=== PATIENT | male | born 1955 | race Caucasian/White ===

== ENCOUNTER 2018-12-29 13:18 | Emergency (ER) | payer BC ==
[2018-12-29 12:39] VITALS: PULSE 76
[2018-12-29] MEDS ORDERED: Sodium Chloride 0.9% 10 ML Syringe FLUSH PRN (13:46)
[2018-12-29] MEDS ORDERED: Iopamidol 612 MG/ML 100 ML Bottle IVPUSH ONE (13:53)
[2018-12-29 14:32] LABS: ANION GAP 13.2; CHLORIDE,CL 104 mmol/L (101-111); SODIUM,NA 138 mmol/L (135-145)
[2018-12-29] MEDS ORDERED: Sodium Chloride 0.9% 1,000 ML IV ONE (15:34)
[2018-12-29] MEDS ORDERED: HYDROmorphone 1 MG/ML Syringe IVPUSH ONE (15:34)
[2018-12-29 15:46] VITALS: BP 145/60
--- NOTE | 2018-12-29 18:23 | EDM.PDOC ---
Scribed by Melinda Hu 12/29/18 [id number] for Ada Silva NP ED HPI GENERAL MEDICAL PROBLEM - General Chief Complaint: Abdominal Pain Stated Complaint: FROM CLINIC Time Seen by Provider: 12/29/18 13:39 Source of Information: Reports: Patient, RN, RN Notes Reviewed History Limitations: Reports: No Limitations - History of Present Illness INITIAL COMMENTS - FREE TEXT/NARRATIVE: Patient presents to ER with complaint of abdominal pain that began last night after supper. He has never had this before. He states abdomen is bloated today. Last bowel movement was yesterday afternoon--small. It was loose earlier in the day. He still has his gallbladder--unsure if still has appendix. He has also had chills and nausea. No fever, vomiting, diarrhea, chest pain or shortness of breath. He has had lap band and hepatitis in the past. Onset Date: 12/28/18 Duration: Getting Worse Location: Reports: Abdomen Quality: Reports: Ache Severity: Severe Improves with: Reports: None Worsens with: Reports: None Associated Symptoms: Reports: No Other Symptoms Abdominal Pain Score (Numeric/FACES): 7 - Related Data Allergies Allergy/AdvReac Type Severity Reaction Status Date / Time levofloxacin [From Levaquin] Allergy Itching Verified 12/29/18 12:39 Home Meds: Home Meds Losartan [Cozaar] 50 mg PO DAILY 11/13/14 [History] Multivitamin [Multi-Vitamin Daily] 1 tab PO DAILY 11/13/14 [History] Simvastatin 40 mg PO BEDTIME 11/13/14 [History] Past Medical History HEENT History: Reports: Impaired Vision Other HEENT History: wears glasses Cardiovascular History: Reports: High Cholesterol, Hypertension Respiratory History: Reports: Bronchitis, Recurrent Gastrointestinal History: Reports: Cirrhosis Other Gastrointestinal History: from meds Genitourinary History: Reports: None Neurological History: Reports: Concussion, Head Trauma Psychiatric History: Reports: None Endocrine/Metabolic History: Reports: Obesity/BMI 30+ Hematologic History: Reports: None Immunologic History: Reports: None Oncologic (Cancer) History: Reports: Squamous Cell Carcinoma Dermatologic History: Reports: Psoriasis - Infectious Disease History Infectious Disease History: Reports: Chicken Pox, Measles - Past Surgical History GI Surgical History: Reports: Appendectomy, Other (See Below) Other GI Surgeries/Procedures: lap band Musculoskeletal Surgical History: Reports: Knee Replacement Social & Family History - Tobacco Use Smoking Status *Q: Never Smoker Second Hand Smoke Exposure: No - Caffeine Use Caffeine Use: Reports: Coffee - Recreational Drug Use Recreational Drug Use: No ED ROS GENERAL - Review of Systems Review Of Systems: ROS reveals no pertinent complaints other than HPI. ED EXAM, GI/ABD - Physical Exam Exam: See Below Exam Limited By: No Limitations General Appearance: Alert, WD/WN, No Apparent Distress Eyes: Bilateral: Normal Appearance Ears: Normal External Exam, Normal Canal, Hearing Grossly Normal, Normal TMs Nose: Normal Inspection, Normal Mucosa, No Blood Throat/Mouth: Normal Inspection, Normal Lips, Normal Teeth, Normal Gums, Normal Oropharynx, Normal Voice, No Airway Compromise Head: Atraumatic, Normocephalic Neck: Normal Inspection, Supple, Non-Tender, Full Range of Motion Respiratory/Chest: No Respiratory Distress, Lungs Clear, Normal Breath Sounds, No Accessory Muscle Use, Chest Non-Tender Cardiovascular: Normal Peripheral Pulses, Regular Rate, Rhythm, No Edema, No Gallop, No JVD, No Murmur, No Rub GI/Abdominal Exam: Rebound (tenderness), Tender (right upper quadrant. ) (Male) Exam: Deferred Rectal (Males) Exam: Deferred Back Exam: Normal Inspection, Full Range of Motion, NT Extremities: Normal Inspection, Normal Range of Motion, Non-Tender, Normal Capillary Refill, No Pedal Edema Neurological: Alert, Oriented, CN II-XII Intact, Normal Cognition, Normal Gait, Normal Reflexes, No Motor/Sensory Deficits Psychiatric: Normal Affect, Normal Mood Skin Exam: Warm, Dry, Intact, Normal Color, No Rash Lymphatic: No Adenopathy Course - Vital Signs Last Recorded V/S: Last Vital Signs Temp 99.1 F 12/29/18 15:46 Pulse 76 12/29/18 15:46 Resp 18 12/29/18 15:46 BP 145/60 H 12/29/18 15:46 Pulse Ox 97 12/29/18 15:46 - Orders/Labs/Meds Orders: Active Orders 24 hr Category Date Time Status Peripheral IV Care [RC] . DIRECTED Care 12/29/18 13:46 Active CULTURE BLOOD [BC] Stat Lab 12/29/18 14:04 Received Blood Culture x2 Reflex Set [OM.PC] Stat Oth 12/29/18 13:46 Ordered Peripheral IV Insertion Adult [OM.PC] Stat Oth 12/29/18 13:46 Ordered Labs: Laboratory Tests 12/29/18 12/29/18 12/29/18 Range/Units 14:04 14:04 14:04 WBC 17.9 H (5.0-10.0) 10^3/uL RBC 5.01 (4.6-6.2) 10^6/uL Hgb 12.6 L (14.0-18.0) g/dL Hct 39.4 L (40.0-54.0) % MCV 78.6 L (80-100) fL MCH 25.1 L (27.0-34.0) pg MCHC 32.0 L (33.0-35.0) g/dL Plt Count 407 (150-450) 10^3/uL Neut % (Auto) 84.6 H (42.2-75.2) % Lymph % (Auto) 5.6 L (20.5-50.1) % [place] % (Auto) 9.3 H (2-8) % Eos % (Auto) 0.3 L (1.0-3.0) % Baso % (Auto) 0.2 (0.0-1.0) % Sodium 138 (135-145) mmol/L Potassium 4.2 (3.6-5.0) mmol/L Chloride 104 (101-111) mmol/L Carbon Dioxide 25.0 (21.0-31.0) mmol/L Anion Gap 13.2 BUN 12 (7-18) mg/dL Creatinine 0.8 (0.6-1.3) mg/dL Est Cr Clr Drug Dosing 105.42 mL/min Estimated GFR (MDRD) > 60 BUN/Creatinine Ratio 15.00 Glucose 162 H (74-105) mg/dL Lactic Acid 1.7 (0.5-2.2) mmol/L Calcium 9.2 (8.4-10.2) mg/dl Total Bilirubin 0.8 (0.2-1.0) mg/dL AST 20 (10-42) IU/L ALT 23 (10-60) IU/L Alkaline Phosphatase 61 (42-121) IU/L Total Protein 7.4 (6.7-8.2) g/dl Albumin 4.0 (3.2-5.5) g/dl Globulin 3.4 Albumin/Globulin Ratio 1.18 Amylase 332 H (28-100) U/L Lipase > 400 H (22-51) U/L Urine Color (YELLOW) Urine Appearance (CLEAR) Urine pH (5.0-9.0) Ur Specific Butler (1.005-1.030) Urine Protein (NEGATIVE) Urine Glucose (UA) (NEGATIVE) Urine Ketones (NEGATIVE) Urine Occult Blood (NEGATIVE) Urine Nitrite (NEGATIVE) Urine Bilirubin (NEGATIVE) Urine Urobilinogen (0.2-1.0) mg/dL Ur Leukocyte Esterase (NEGATIVE) Urine RBC /HPF Urine WBC (0-5/HPF) /HPF Ur Epithelial Cells (NOT SEEN) /HPF Urine Bacteria (0-FEW/HPF) /HPF Urine Mucus (NOT SEEN) /LPF 12/29/18 Range/Units 14:10 WBC (5.0-10.0) 10^3/uL RBC (4.6-6.2) 10^6/uL Hgb (14.0-18.0) g/dL Hct (40.0-54.0) % MCV (80-100) fL MCH (27.0-34.0) pg MCHC (33.0-35.0) g/dL Plt Count (150-450) 10^3/uL Neut % (Auto) (42.2-75.2) % Lymph % (Auto) (20.5-50.1) % [place] % (Auto) (2-8) % Eos % (Auto) (1.0-3.0) % Baso % (Auto) (0.0-1.0) % Sodium (135-145) mmol/L Potassium (3.6-5.0) mmol/L Chloride (101-111) mmol/L Carbon Dioxide (21.0-31.0) mmol/L Anion Gap BUN (7-18) mg/dL Creatinine (0.6-1.3) mg/dL Est Cr Clr Drug Dosing mL/min Estimated GFR (MDRD) BUN/Creatinine Ratio Glucose (74-105) mg/dL Lactic Acid (0.5-2.2) mmol/L Calcium (8.4-10.2) mg/dl Total Bilirubin (0.2-1.0) mg/dL AST (10-42) IU/L ALT (10-60) IU/L Alkaline Phosphatase (42-121) IU/L Total Protein (6.7-8.2) g/dl Albumin (3.2-5.5) g/dl Globulin Albumin/Globulin Ratio Amylase (28-100) U/L Lipase (22-51) U/L Urine Color Yellow (YELLOW) Urine Appearance Slightly cloudy (CLEAR) Urine pH 7.0 (5.0-9.0) Ur Specific Butler 1.025 (1.005-1.030) Urine Protein Trace H (NEGATIVE) Urine Glucose (UA) 500 H (NEGATIVE) Urine Ketones Negative (NEGATIVE) Urine Occult Blood Trace-intact H (NEGATIVE) Urine Nitrite Negative (NEGATIVE) Urine Bilirubin Negative (NEGATIVE) Urine Urobilinogen 0.2 (0.2-1.0) mg/dL Ur Leukocyte Esterase Negative (NEGATIVE) Urine RBC 0-5 /HPF Urine WBC Not seen (0-5/HPF) /HPF Ur Epithelial Cells Not seen (NOT SEEN) /HPF Urine Bacteria Rare (0-FEW/HPF) /HPF Urine Mucus Few H (NOT SEEN) /LPF Meds: Medications Discontinued Medications Generic Name Dose Route Start Last Admin Trade Name Freq PRN Reason Stop Dose Admin Hydromorphone HCl 1 mg 12/29/18 15:34 12/29/18 15:44 Dilaudid IVPUSH 12/29/18 15:35 1 mg ONETIME ONE Administration Sodium Chloride 1,000 mls @ 999 mls/hr 12/29/18 15:34 12/29/18 15:43 Normal Saline IV 12/29/18 16:34 999 mls/hr .BOLUS ONE Administration Iopamidol 100 ml 12/29/18 13:53 12/29/18 14:52 Isovue-300 (61%) IVPUSH 12/29/18 13:54 100 ml ONETIME ONE Administration Sodium Chloride 10 ml 12/29/18 13:46 12/29/18 14:35 Saline Flush FLUSH 10 ml ASDIRECTED PRN Administration Keep Vein Open - Radiology Interpretation Free Text/Narrative:: CT Abdomen/Pelvis with contrast: FINDINGS: Tubes, catheters and devices: An anterior abdominal wall catheter extends to a laparoscopic band. Lungs: Mild bibasilar consolidation is present, consistent with atelectasis. Liver: The liver is normal. Gallbladder and bile ducts: The common bile duct is not apparent and does not appear dilated. The gallbladder is normal Pancreas: The head and body of the pancreas is edematous with induration of the fat surrounding the pancreas and adjacent duodenum. Pancreatic tail appears normal. A 5 mm calcification in the inferior right aspect of the pancreatic head may lie within the common bile duct. Spleen: The spleen is normal. Adrenals: The adrenal glands are normal. Kidneys and ureters: The kidneys are morphologically normal. There are no signs of calculi or hydronephrosis. Stomach and bowel: . A 2nd calcification lies in the medial wall of the 2nd portion of the duodenum slightly cephalad to the suspected common bile duct calculus.The remainder of the GI tract has normal course, caliber, and morphology. No obstruction. No mucosal thickening. Appendix: A normal appendix is identified. Intraperitoneal space: There is no evidence of free intraperitoneal or pelvic fluid. Vasculature: The abdominal aorta, IVC, and their branches are unremarkable. Lymph nodes: There is no evidence of lymphadenopathy. Bladder: The bladder is normal. Reproductive: A laparoscopic band appears in appropriate position at the GE junction.The prostate demonstrates mild nonspecific enlargement. The seminal vesicles are normal. Bones/joints: The lumbar spine demonstrates mild degenerative changes at multiple levels. The pelvis and sacrum are morphologically normal and anatomically aligned. Soft tissues: Unremarkable. IMPRESSION: 1. Right upper abdominal inflammation centered around the pancreatic head and duodenum. Findings favor gallstone pancreatitis though there is no apparent biliary dilatation. Alternatively, this could reflect duodenitis with secondary pancreatic involvement. 2. There is no evidence of intestinal obstruction. 3. Sequela of laparoscopic band placement. Thank you for allowing us to participate in the care of your patient. Dictated and Authenticated by: Samir Hughes MD 12/29/2018 3:14 PM Central Time ([place] & [place]) See rad report - Re-Assessments/Exams Free Text/Narrative Re-Assessment/Exam: 12/29/18 18:22 Discussed patient case with Dr. Tam who agreed to accept the patient for transfer to [facility] Departure - Departure Time of Disposition: 16:35 Disposition: DC/Tfer to Acute Hospital 02 Condition: Fair Clinical Impression: Pancreatitis Qualifiers: Chronicity: acute Pancreatitis type: other Acute pancreatitis complication: unspecified Qualified Code(s): K85.80 - Other acute pancreatitis without necrosis or infection - Discharge Information *PRESCRIPTION DRUG MONITORING PROGRAM REVIEWED*: No *COPY OF PRESCRIPTION DRUG MONITORING REPORT IN PATIENT DEA: No Referrals: PCP,None [Primary Care Provider] - Forms: ED Department Discharge, Interfacility Transfer EMTALA - My Orders Last 24 Hours: My Active Orders 12/29/18 13:46 Peripheral IV Care [RC] . DIRECTED Blood Culture x2 Reflex Set [OM.PC] Stat Peripheral IV Insertion Adult [OM.PC] Stat 12/29/18 14:04 CULTURE BLOOD [BC] Stat - Assessment/Plan Last 24 Hours: My Active Orders 12/29/18 13:46 Peripheral IV Care [RC] . DIRECTED Blood Culture x2 Reflex Set [OM.PC] Stat Peripheral IV Insertion Adult [OM.PC] Stat 12/29/18 14:04 CULTURE BLOOD [BC] Stat I have read and agree with the documentation that has been completed regarding this visit. By signing this record, I attest that the documentation was completed in my physical presence and is an accurate record of the encounter.
== END 2018-12-29 16:31 ==
LOC: DL.ED 13:18
DX: K85.80 Other acute pancreatitis without necrosis or infection (principal); I10 Essential (primary) hypertension; E78.00 Pure hypercholesterolemia, unspecified; E66.9 Obesity, unspecified; Z88.1 Allergy status to other antibiotic agents; Z79.899 Other long term (current) drug therapy; Z90.49 Acquired absence of other specified parts of digestive tract; Z68.35 Body mass index [BMI] 35.0-35.9, adult
CPT/HCPCS: 36415; 74177; 80053; 81001; 82150; 83605; 83690; 85025; 87040; 96361; 96374; 99285; J1170; J7030; Q9967

== ENCOUNTER 2024-07-12 05:30 | Day surgery (SDC) | payer MEDICARE, OTHER ==
[2024-07-12] MEDS: Dextrose 5%-0.45% NaCl 1,000 ML IV SCH (05:58)
[2024-07-12] MEDS ORDERED: Midazolam 1 MG/ML 2 ML SDV ONE (06:14)
[2024-07-12] MEDS ORDERED: Midazolam 1 MG/ML 2 ML SDV IV ONE (06:15)
[2024-07-12] MEDS ORDERED: fentaNYL 100 MCG/2 ML SDV IV ONE (06:15)
[2024-07-12] MEDS ORDERED: fentaNYL 100 MCG/2 ML SDV ONE (06:15)
[2024-07-12] MEDS: fentaNYL 100 MCG/2 ML SDV IV ONE ×2 (06:56)
[2024-07-12] MEDS: Midazolam 1 MG/ML 2 ML SDV IV ONE ×5 (06:56→07:17)
[2024-07-12 08:33] VITALS: BP 131/71; PULSE 63
== END 2024-07-12 08:33 | disposition home or self-care (01) ==
LOC: DL.ENDO 05:30
PROVIDERS: ATTEND Internal Medicine Gastroenterology
DX: K52.9 Noninfective gastroenteritis and colitis, unspecified (principal); K64.8 Other hemorrhoids; K64.4 Residual hemorrhoidal skin tags
CPT/HCPCS: 45380; J2250; J3010; 88305